=== PATIENT | female | born 1995 | race Two or more races ===

== ENCOUNTER 2020-10-05 23:35 | Emergency (ER) | payer MEDICAID, OTHER ==
[~2020-10-05] VITALS: Ht 162.6 cm; Wt 55.3 kg
[2020-10-05] MEDS ORDERED: EPINEPHrine HCL 1 MG/1 ML AMP ONE (23:41)
[2020-10-05] MEDS ORDERED: FAMOTIDINE (10MG/ML) 2ML VL IV ONE (23:45)
[2020-10-05] MEDS ORDERED: SODIUM CHLORIDE 0.9% 1,000 ML IV ONE (23:45)
[2020-10-05] MEDS ORDERED: methylPREDNISolone SOD SUCC 125 MG/2 ML VL IV ONE (23:45)
[2020-10-05] MEDS ORDERED: diphenhdrAMINE HCL 50 MG/1 ML VL IV ONE (23:45)
[2020-10-06] MEDS ORDERED: EPINEPHrine HCL 1 MG/1 ML AMP IM ONE ×2
[2020-10-06] MEDS ORDERED: IPRATROPIUM BROM 0.5 MG/2.5ML INH SOL NEB ONE
[2020-10-06] MEDS ORDERED: ALBUTEROL SULF 2.5 MG/0.5ML(0.5%) NEB SOLN NEB ONE
[2020-10-06 03:20] VITALS: BP 106/67
== END 2020-10-06 03:19 | disposition home or self-care (01) ==
LOC: ER 23:35
DX: T78.2XXA Anaphylactic shock, unspecified, initial encounter (principal); F12.10 Cannabis abuse, uncomplicated; Z88.6 Allergy status to analgesic agent
CPT/HCPCS: 94640; 96361; 96372; 96374; 96375; 99285; J0171; J1200; J2930; J3490; J7030; J7644